=== PATIENT | male | born 1985 | race Caucasian/White ===

== ENCOUNTER 2024-02-03 16:18 | Outpatient (CLI) | payer MEDICAID, SELFPAY | END 2024-02-03 16:19 | disposition home or self-care (01) | PROVIDERS: PCP Family Medicine; Visit Provider Family Medicine | DX: I10 Essential (primary) hypertension (principal); Z79.899 Other long term (current) drug therapy; Z13.220 Encounter for screening for lipoid disorders | CPT/HCPCS: 80053; 80061; 82043; 82570 ==

== ENCOUNTER 2024-03-18 15:04 | Outpatient (CLI) | payer MEDICAID, SELFPAY ==
--- NOTE | 2024-03-18 15:00 | US_ITS ---
Patient: JALEN GARZA Facility:?[facility] Patient ID:?[id number] Site Patient ID:?[id number]. Site :?[id number] Study:?US-Abdomen limited-03/18/2024 3:50:45 PM Ordering Physician:Parisa Meehan Final Report: INDICATION: Alcohol abuse COMPARISON: none TECHNIQUE: Real time ambrose scale imaging and color Doppler analysis was performed of the right upper quadrant. FINDINGS: The liver is diffusely echogenic. No intrahepatic mass. The liver measures 15.2 cm. There is a normal appearance of the hepatic IVC and proximal abdominal aorta. There is no evidence of ascites. The gallbladder is of normal size and there is no evidence of intraluminal stones or sludge. The gallbladder wall measures 2 mm in thickness. The common bile duct is of normal size and measures 2 mm in diameter at the level of the adriana hepatis. The visualized pancreas appears normal. There is no evidence of a stone or hydronephrosis within the right kidney. The right kidney measures 12.1 cm in length. IMPRESSION: Diffuse hepatic steatosis, moderate. No ascites or intrahepatic mass. Dictated by Abundio Akhtar MD @ 03/19/2024 8:27:56 AM Signed by:?Abundio Akhtar MD @03/19/2024 8:27:56 AM (Electronic Signature)
== END 2024-03-18 15:05 | disposition home or self-care (01) ==
LOC: US 15:05
PROVIDERS: PCP Family Medicine; Visit Provider Family Medicine
DX: F10.10 Alcohol abuse, uncomplicated (principal); K76.0 Fatty (change of) liver, not elsewhere classified; R74.01 Elevation of levels of liver transaminase levels
CPT/HCPCS: 76705